=== PATIENT | male | born 1960 | race Caucasian/White ===

== ENCOUNTER → 2020-10-19 13:37 | Outpatient (BNVA) | payer MEDICARE, MEDICAID, SELFPAY | PROVIDERS: PCP Specialist; Referring Provider Internal Medicine; Visit Provider Psychiatry & Neurology Neurology | DX: G21.11 Neuroleptic induced parkinsonism (principal); T43.505A Adverse effect of unspecified antipsychotics and neuroleptics, initial encounter; K11.7 Disturbances of salivary secretion | CPT/HCPCS: 99205 ==

== ENCOUNTER → 2021-04-19 12:38 | Outpatient (BNVA) | payer MEDICARE, MEDICAID, SELFPAY | PROVIDERS: PCP Specialist; Referring Provider Specialist; Visit Provider Psychiatry & Neurology Neurology | DX: G20 Parkinson's disease (principal); K11.7 Disturbances of salivary secretion; K59.00 Constipation, unspecified | CPT/HCPCS: 99214 ==

== ENCOUNTER → 2021-06-14 12:54 | Outpatient (BNVA) | payer MEDICARE, MEDICAID, SELFPAY | PROVIDERS: PCP Specialist; Referring Provider Specialist; Visit Provider Psychiatry & Neurology Neurology | DX: G20 Parkinson's disease (principal); K11.7 Disturbances of salivary secretion | CPT/HCPCS: 99213 ==

== ENCOUNTER → 2021-08-17 13:01 | Outpatient (BNVA) | payer MEDICARE, MEDICAID, SELFPAY | PROVIDERS: PCP Specialist; Referring Provider Specialist; Visit Provider Psychiatry & Neurology Neurology | DX: G20 Parkinson's disease (principal) | CPT/HCPCS: 99213 ==

== ENCOUNTER → 2022-02-15 10:59 | Outpatient (BNVA) | payer MEDICARE, MEDICAID, SELFPAY | PROVIDERS: PCP Specialist; Referring Provider Specialist; Visit Provider Psychiatry & Neurology Neurology | DX: R41.3 Other amnesia (principal); I10 Essential (primary) hypertension; G20 Parkinson's disease; K11.7 Disturbances of salivary secretion | CPT/HCPCS: 99214 ==

== ENCOUNTER → 2022-08-16 13:15 | Outpatient (BNVA) | payer MEDICARE, MEDICAID, SELFPAY | PROVIDERS: PCP Specialist; Referring Provider Specialist; Visit Provider Psychiatry & Neurology Neurology | DX: G21.11 Neuroleptic induced parkinsonism (principal); I10 Essential (primary) hypertension; K11.7 Disturbances of salivary secretion | CPT/HCPCS: 99214 ==

== ENCOUNTER → 2023-02-14 10:34 | Outpatient (BNVA) | payer MEDICARE, MEDICAID, SELFPAY | PROVIDERS: PCP Specialist; Referring Provider Specialist; Visit Provider Psychiatry & Neurology Neurology | DX: G20.C Parkinsonism, unspecified (principal); R41.3 Other amnesia | CPT/HCPCS: 99214 ==

== ENCOUNTER → 2023-10-03 14:29 | Outpatient (BNVA) | payer MEDICARE, MEDICAID, SELFPAY | PROVIDERS: PCP Specialist; Referring Provider Specialist; Visit Provider Psychiatry & Neurology Neurology | DX: G20.C Parkinsonism, unspecified (principal); K11.7 Disturbances of salivary secretion | CPT/HCPCS: 99213 ==

== ENCOUNTER → 2024-10-01 12:21 | Outpatient (BNVA) | payer MEDICARE, MEDICAID, SELFPAY | PROVIDERS: PCP Internal Medicine; Referring Provider Internal Medicine; Visit Provider Psychiatry & Neurology Neurology | DX: G20.C Parkinsonism, unspecified (principal); K11.7 Disturbances of salivary secretion; I10 Essential (primary) hypertension | CPT/HCPCS: 99214 ==